=== PATIENT | male | born 1945 | race Caucasian/White ===

== ENCOUNTER → 2019-10-13 | Outpatient (CLI) | payer MEDICARE | END | disposition home or self-care (01) | LOC: LABPAT 10:56 | PROVIDERS: ATTEND Urology | DX: Z01.818 Encounter for other preprocedural examination (principal); N20.1 Calculus of ureter; I10 Essential (primary) hypertension | CPT/HCPCS: 93005 ==

== ENCOUNTER 2019-10-20 15:30 | Day surgery (SDC) | payer MEDICARE ==
--- NOTE | 2019-10-16 21:49 | P.GSHP ---
History of Present Illness H&P Date: 10/16/19 Chief Complaint: Left flank pain The patient is a 74-year-old white male with a history of kidney stones in the remote past. On 10/02/2019 he experienced acute onset of left flank pain, and a computed tomography scan obtained several days later showed evidence of mild left hydronephrosis due to two 6 mm left ureteral calculi, one within the upper ureter and the other within the mid ureter. - Constitutional Constitutional: Denies chills, Denies fever - Gastrointestinal Gastrointestinal: Denies nausea, Denies vomiting - Genitourinary (Female) Genitourinary: Reports flank pain, Denies hematuria Surgical - Exam - General well developed, well nourished, no distress - Neck no masses, trachea midline - Respiratory normal respiratory effort, clear to auscultation - Cardiovascular Rhythm: regular Abnormal Heart Sounds: no systolic murmur, no diastolic murmur, no rub, no S3 Gallop, no S4 Gallop, no click, no other - Abdomen Abdomen: soft, non tender, no guarding, no rigid, no rebound - Genitourinary normal penis with no external lesions, testicles non-tender - Rectum Rectum: normal sphincter tone, no masses - Psychiatric oriented to time, oriented to person, oriented to place, speech is normal, memory intact Results - Imaging CT scan - abdomen: report reviewed, image reviewed Assessment and Plan (1) Calculus of ureter Status: Acute Code(s): N20.1 - CALCULUS OF URETER SNOMED Code(s): 55653988 (2) Hydronephrosis with renal and ureteral calculous obstruction Status: Acute Code(s): N13.2 - HYDRONEPHROSIS WITH RENAL AND URETERAL CALCULOUS OBSTRUCTION SNOMED Code(s): 473176178 Plan: Cystoscopy, left ureteroscopy with Holmium laser lithotripsy, left ureteral stent insertion. The procedure has been reviewed in detail with the patient. Potential risks have been discussed, which include anesthesia, bleeding, infection, ureteral injury, and inability to successfully remove the calculi. The patient is where the possible need for secondary treatments.
[2019-10-18 14:20] VITALS: BMI 26.6
--- NOTE | 2019-10-20 14:19 | XR ---
EXAMINATION TYPE: XR KUB DATE OF EXAM: 10/20/2019 COMPARISON: NONE HISTORY: Pain TECHNIQUE: One view abdominal series FINDINGS: The osseous structures are intact. The bowel gas pattern is nonspecific. There is a 3.5 mm calcifica tion left upper quadrant adjacent to the transverse process of L3. Overlying bowel content limits bart luation the renal outlines with no definite suspicious calcification bilaterally. Calcifications in the pelvis are likely related to the prostate. Arthropathy of the hips and degenera tive change of the spine.. IMPRESSION: 1. Findings suggest a small mid left ureteral calculus measuring approximately 3.5 mm.
[2019-10-20 14:40] VITALS: RESP 16; TEMP 97.1
[~2019-10-20 15:30] MED LIST: DEXAMETHASONE SOD PHOSPHATE 10 MG/ML 1 ML VIAL IV ONE; LACTATED RINGERS 1,000 ML IV SCH; LIDOCAINE 1% (10MG/ML) FOR IV START SQ ONE; ONDANSETRON 4 MG/2 ML VIAL ONE; fentaNYL (PF) 50 MCG/ML 2 ML AMP IV PRN
[2019-10-20] MEDS ORDERED: PROPOFOL 10 MG/ML 20 ML VIAL IV ONE (15:55)
[2019-10-20] MEDS ORDERED: fentaNYL (PF) 50 MCG/ML 2 ML AMP ONE (15:55)
[2019-10-20] MEDS ORDERED: LIDOCAINE 1% INJ 10MG/ML (20 ML MDV) ONE (15:55)
[2019-10-20] MEDS ORDERED: MIDAZOLAM 2 MG/2 ML VIAL ONE (15:55)
[2019-10-20] MEDS ORDERED: SUCCINYLCHOLINE CHLORIDE 100 MG/5 ML SYR IV ONE (15:55)
[2019-10-20] MEDS ORDERED: IOPAMIDOL-370 50ML BTL MISCELLANE ONE (16:30)
[2019-10-20] MEDS ORDERED: LACTATED RINGERS 1,000 ML IV ONE (17:05)
--- NOTE | 2019-10-20 17:10 | P.OP ---
Date of Procedure: 10/20/19 Preoperative Diagnosis: Left ureteral calculi Postoperative Diagnosis: Same Procedure(s) Performed: Cystoscopy, left ureteroscopy with Holmium laser lithotripsy and stone basketing, left ureteral stent insertion Anesthesia: BRIANDA Surgeon: John Trejo Estimated Blood Loss (ml): 5 IV fluids (ml): 950 Pathology: other (Calculus fragments, sent for chemical analysis) Condition: stable Disposition: PACU Indications for Procedure: The patient is a 74-year-old white male with a history of kidney stones in the remote past. On 10/02/2019 he experienced acute onset of left flank pain, and a computed tomography scan obtained several days later showed evidence of mild left hydronephrosis due to two 6 mm left ureteral calculi, one within the upper ureter and the other within the mid ureter. Operative Findings: Left distal ureteral calculus, left mid ureteral calculus. Both fragmented completely. Description of Procedure: The patient was taken to the operating room and placed in the dorsolithotomy position, with legs supported in Brian stirrups. The external genitalia was prepped and draped sterilely. The 30 lens was used to introduce the 21-Maldivian Jaimes cystoscopic sheath through the urethra and into the bladder under direct vision. The prostatic urethra showed evidence of mild lateral lobe enlargement. The bladder was examined in its entirety. Both ureteral orifices were normal anatomic location and configuration, and clear urine effluxed from both. No tumors or foreign bodies were seen. Using an 8-Maldivian cone-tipped catheter, a left retrograde pyelogram was performed in the standard fashion. A calculus was seen within the left distal ureter. On the preoperative KUB x-ray, the other calculus was seen within the left proximal to mid ureter. It was noted that the left distal ureter was narrowed. A 0.035 inch Glidewire was passed through the cystoscope. The left ureteral orifice was cannulated, and the Glidewire was advanced. A 15-Maldivian balloon dilating catheter was then passed over the wire, and was used to dilate the distal ureter. The ACMI semirigid ureteroscope was advanced into the bladder, and the left ureteral orifice was cannulated. The 272 micron Holmium laser probe was passed through the ureteroscope, and lithotripsy was performed. After fragmenting the distal ureteral calculus, the ureteroscope was advanced under direct vision until the more proximal ureteral calculus was encountered. This calculus was fragmented, and this was continued until all calculus fragments were easily small enough to pass. The calculi were fairly easy to fragment. As the ureteroscope was withdrawn, multiple calculus fragments were seen within the left distal ureter. The 1.9-Maldivian nitinol basket was used to basket his fragments, leaving them in the bladder. A 0.035 inch Glidewire was then passed through the ureteroscope and up to the left renal pelvis. A 26 cm, 6-Maldivian double-J ureteral stent was placed over the wire. Proper stent positioning was verified fluoroscopically and endoscopically. The bladder was emptied and the cystoscope removed. Several calculus fragments were retrieved and sent for chemical analysis. These string attached to the stent was secured to the penis using a Tegaderm dressing. The patient tolerated the procedure well and was taken to the recovery room in stable condition.
[2019-10-20 18:26] VITALS: BP 156/86; PULSE 60
--- NOTE | 2019-10-21 09:37 | FL ---
EXAMINATION TYPE: FL urography retrograde DATE OF EXAM: 10/20/2019 FLUOROSCOPY Fluoroscopy time of 34 seconds was used during left ureteral stent placement. 3 image/s document/s t he procedure.
== END 2019-10-20 18:00 | disposition home or self-care (01) ==
LOC: OR 15:30
PROVIDERS: ATTEND Urology
DX: N13.2 Hydronephrosis with renal and ureteral calculous obstruction (principal); I10 Essential (primary) hypertension; E78.5 Hyperlipidemia, unspecified; Z87.442 Personal history of urinary calculi; Z79.899 Other long term (current) drug therapy; Z95.0 Presence of cardiac pacemaker; Z90.49 Acquired absence of other specified parts of digestive tract; Z98.890 Other specified postprocedural states
CPT/HCPCS: 82365; 74420; 74018; 52356; C2625; C1758; C1769; J2250; J1100; J0690; J2405; J2001; J3010; J0330; J2704; Q9967

== ENCOUNTER → 2019-11-23 | Outpatient (CLI) | payer MEDICARE ==
--- NOTE | 2019-11-23 20:33 | US ---
EXAMINATION TYPE: US kidneys/renal and bladder DATE OF EXAM: 11/23/2019 COMPARISON: NONE CLINICAL HISTORY: N20.1 Calculus of ureter. EXAM MEASUREMENTS: Right Kidney: 9.7x 5.9 x 5.3 cm Left Kidney: 10.3 x 4.5 x 5.2 cm Right Kidney: multiple cysts, largest 2 measuring 1.) 6.8 x3.5 x 4.2cm, 2.) 6.0 x 6.5 x 5.7cm, mild h ydro Left Kidney: anechoic tubular structure seen midline/inf ?mild hydro. Probable inferior cyst with wal l calcification measuring 0.9 x 0.8 x0.9cm Bladder: wall appears slightly thickened at 0.5cm IMPRESSION: 1. Multiple bilateral renal cysts. 2. Moderate right hydronephrosis is suspected. Mild left inferior pole hydronephrosis may be present.
--- NOTE | 2019-11-23 23:05 | XR ---
EXAMINATION TYPE: XR KUB DATE OF EXAM: 11/23/2019 COMPARISON: 10/20/2019 INDICATION: Calculus of ureter TECHNIQUE: Single view abdomen frontal projection FINDINGS: Normal colonic bowel gas is present. Psoas margins are normal. No organomegaly is present. Previous left ureteral stone is not evident. IMPRESSION: 1. Unremarkable Abdomen
== END | disposition home or self-care (01) ==
LOC: RADUSWWP 14:55
PROVIDERS: ATTEND Urology
DX: N28.1 Cyst of kidney, acquired (principal); N13.2 Hydronephrosis with renal and ureteral calculous obstruction
CPT/HCPCS: 74018; 76770

== ENCOUNTER 2020-09-07 06:20 | Inpatient (IN) | payer MEDICARE ==
[2020-09-07] MEDS ORDERED: NALOXONE 0.4 MG/ML 1 ML VIAL IV PRN (06:23)
[2020-09-07] MEDS ORDERED: ONDANSETRON 4 MG/2 ML VIAL IVP PRN (06:23)
--- NOTE | 2020-09-07 06:26 | ED ---
Recheck HPI - General Stated Complaint: ABD Pain Time Seen by Provider: 09/07/20 06:23 Source: RN notes reviewed, old records reviewed Mode of arrival: EMS Limitations: no limitations - History of Present Illness Initial Comments: This is a 75-year-old male DF for evaluation presents as a transfer patient from [facility] for small bowel obstruction history of small bowel obstruction. Patient himself is well appearing currently, pain is controlled no active nausea vomiting. Patient does have NG tube placed MD Complaint: other (Small bowel obstruction) -: days(s) Returns Today for: persistent/worsening pain related to initial visit, other (Seen and evaluated found to have small bowel obstruction) Symptoms Since Prior Visit: no new symptoms Context: other (None) Associated Symptoms: none Treatments Prior to Arrival: Given Pain Meds on, other (NG tube in place) - Related Data Home Medications Medication Instructions Recorded Confirmed Ciprofloxacin HCl [Cipro] 250 mg PO Q12HR 10/18/19 10/20/19 HYDROcodone/APAP 5-325MG [[place] 1 tab PO Q6HR PRN 10/18/19 10/20/19 5-325] Irbesartan [Avapro] 150 mg PO QAM 10/18/19 10/20/19 Isosorbide Mononitrate ER [Imdur] 30 mg PO QAM 10/18/19 10/20/19 Ketorolac [Toradol] 10 mg PO Q6HR PRN 10/18/19 10/20/19 Ondansetron [Zofran] 4 mg PO Q12HR PRN 10/18/19 10/20/19 Pravastatin Sodium [Pravachol] 40 mg PO HS 10/18/19 10/20/19 Tamsulosin HCl [Flomax] 0.4 mg PO DAILY 10/18/19 10/20/19 amLODIPine [Norvasc] 10 mg PO QAM 10/18/19 10/20/19 atenoloL [Tenormin] 25 mg PO BID 10/18/19 10/20/19 Allergies Allergy/AdvReac Type Severity Reaction Status Date / Time No Known Allergies Allergy Verified 10/20/19 14:40 Review of Systems ROS Statement: Those systems with pertinent positive or pertinent negative responses have been documented in the HPI. ROS Other: All systems not noted in ROS Statement are negative. General Exam General appearance: alert, in no apparent distress Head exam: Present: atraumatic, normocephalic, normal inspection Eye exam: Present: normal appearance, PERRL, EOMI. Absent: scleral icterus, conjunctival injection, periorbital swelling ENT exam: Present: normal exam, mucous membranes moist Neck exam: Present: normal inspection. Absent: tenderness, meningismus, lymphadenopathy Respiratory exam: Present: normal lung sounds bilaterally. Absent: respiratory distress, wheezes, rales, rhonchi, stridor Cardiovascular Exam: Present: regular rate, normal rhythm, normal heart sounds. Absent: systolic murmur, diastolic murmur, rubs, gallop, clicks GI/Abdominal exam: Present: soft, normal bowel sounds. Absent: distended, tenderness, guarding, rebound, rigid Extremities exam: Present: normal inspection, full ROM, normal capillary refill. Absent: tenderness, pedal edema, joint swelling, calf tenderness Back exam: Present: normal inspection Neurological exam: Present: alert, oriented X3, CN II-XII intact Psychiatric exam: Present: normal affect, normal mood Skin exam: Present: warm, dry, intact, normal color. Absent: rash Course - Reevaluation(s) Reevaluation #1: 09/07/20 06:25 Medical record is reviewed Reevaluation #2: 09/07/20 06:26 Transferring paperwork has been reviewed Medical Decision Making - Medical Decision Making 75 male to be admitted for small bowel obstruction. Patient was surgical consultation and into his place, patient be kept nothing by mouth with symptomatically treatment Disposition Clinical Impression: Small bowel obstruction Disposition: ADMITTED IP TO THIS [facility] Condition: Fair Is patient prescribed a controlled substance at d/c from ED?: No Referrals: Sourav Amezquita MD [Primary Care Provider] - 1-2 days
[2020-09-07] MEDS ORDERED: SODIUM CHLORIDE 0.9% 1,000 ML IV SCH (06:30)
[2020-09-07] MEDS: MORPHINE SULFATE 4 MG/ML SYRINGE IV PRN ×2 (06:48→10:49)
[2020-09-07] MEDS ORDERED: PANTOPRAZOLE 40 MG/10 ML VIAL IV SCH (09:00)
--- NOTE | 2020-09-07 09:51 | P.GSCN ---
History of Present Illness Consult date: 09/07/20 Reason for Consult: Small bowel obstruction History of present illness: 75-year-old male from outside hospital presents as a transfer with small bowel obstruction. Patient states he had 2 similar episodes in the past. The first episode was treated via laparoscopic surgery. His appendix was removed at that time. His surgeon told him at the time that he did not think there was actually a bowel obstruction. The second episode was treated nonoperatively. He states he had episodes of nausea and vomiting and diarrhea 3-4 days ago but those symptoms resolved and then yesterday began experiencing bloating and some vague abdominal pain. Went to the ER for evaluation with those complaints and had a CAT scan. CAT scan does demonstrate proximal small bowel dilation. There is air filled colon as well. There is collapsed distal ileal loops. There is a 2 cm mesenteric lymph node seen without calcification. This lymph node is in the vicinity of the decreased caliber bowel loops. He has no pain at this time. Still feels bloated. Nasogastric tube was placed. White blood cell count is normal. He is afebrile. Denies fevers. No rectal bleeding or melena. No sick contacts. Only other surgical history and the abdomen would be bilateral inguinal hernias many years ago. Review of Systems The patient denies any acute changes in vision or hearing, no dysphagia or odynophagia, no chest pain or shortness of breath, no dysuria or hematuria, no headache, no runny nose, no rectal bleeding or melena, no unexplained weight loss Medications and Allergies Home Medications Medication Instructions Recorded Confirmed Type Irbesartan [Avapro] 150 mg PO QAM 10/18/19 09/07/20 History Pravastatin Sodium [Pravachol] 40 mg PO HS 10/18/19 09/07/20 History amLODIPine [Norvasc] 10 mg PO QAM 10/18/19 09/07/20 History atenoloL [Tenormin] 25 mg PO BID 10/18/19 09/07/20 History Azelastine HCl [Astepro] 2 spray EA NOSTRIL BID 09/07/20 09/07/20 History Ezetimibe [Zetia] 10 mg PO DAILY 09/07/20 09/07/20 History Isosorbide Mononitrate ER [Imdur] 60 mg PO DAILY 09/07/20 09/07/20 History Ketorolac 0.5% Ophth Soln [Acular] 1 drop LEFT EYE QID 09/07/20 09/07/20 History Tolterodine ER [Detrol LA] 4 mg PO DAILY 09/07/20 09/07/20 History Allergies Allergy/AdvReac Type Severity Reaction Status Date / Time No Known Allergies Allergy Verified 09/07/20 07:17 Surgical - Exam Vital Signs Temp Pulse Resp BP Pulse Ox 97.6 F 60 22 118/82 96 09/07/20 06:39 09/07/20 06:39 09/07/20 06:39 09/07/20 06:39 09/07/20 06:39 Physical exam: General: Well-developed, well-nourished HEENT: Normocephalic, sclerae nonicteric Abdomen: Nontender, mild distention Extremities: No edema Neuro: Alert and oriented Assessment and Plan (1) Small bowel obstruction Narrative/Plan: 75-year-old male with recurrent small bowel obstruction. CAT scan reviewed. Findings of mesenteric lymph node is somewhat unusual. No discrete transition point. No inflammatory changes in the abdomen. Continue nonoperative approach for now. Repeat abdominal x-rays tomorrow. Will follow closely. Current Visit: Yes Status: Acute Code(s): K56.609 - UNSP INTESTNL OBST, UNSP TO PARTIAL VERSUS COMPLETE OBST SNOMED Code(s): 805244095
[2020-09-07] MEDS: ENOXAPARIN 40 MG/0.4 ML SYRINGE SQ SCH (10:38)
[2020-09-07] MEDS: ISOSORBIDE MONONITRATE ER 60 MG TAB.ER.24H PO SCH (10:38)
[2020-09-07] MEDS: atenoloL 25 MG TAB PO SCH ×2 (10:39→20:06)
[2020-09-07] MEDS: amLODIPine 10 MG TAB PO SCH (10:39)
[2020-09-07] MEDS: LOSARTAN 50 MG TAB PO SCH (10:39)
[2020-09-07] MEDS: OXYBUTYNIN XL 5 MG TAB.ER.24 PO SCH (10:39)
[2020-09-07 12:56] LABS: African American GFR (CKD) >90 (>60 ml/min/1.73 sqM); Anion Gap 8 mmol/L; Blood Urea Nitrogen 27 mg/dL (9-20); Calcium 8.2 mg/dL (8.4-10.2); Carbon Dioxide 21 mmol/L (22-30); Chloride 109 mmol/L (98-107); Glucose 121 mg/dL (74-99); Non-African American GFR(CKD) 84 (>60 ml/min/1.73 sqM); Potassium 3.8 mmol/L (3.5-5.1); Sodium 138 mmol/L (137-145)
[2020-09-07] MEDS: KETOROLAC 0.5% OPHTH DROPS 5 ML BTL LEFT EYE SCH ×4 (14:30→20:10)
[2020-09-07] MEDS: LACTATED RINGERS 1,000 ML IV SCH ×2 (15:21→20:06)
--- NOTE | 2020-09-07 19:48 | P.HPIM ---
History of Present Illness H&P Date: 09/07/20 Chief Complaint: Abdominal pain History of presenting complaint: This is a pleasant 75-year-old patient of Dr. Amezquita. Chronic stable medical conditions include GERD, hypertension, hyperlipidemia, permanent pacemaker for sick sinus syndrome, hiatal hernia, nonobstructive coronary artery disease, osteomyelitis, BPH, basal cell carcinoma, kidney stones recovering. Patient 3 days ago started off with increasing abdominal pain. More central. Followed by nausea vomiting. No fever no chills. Normally has a bowel movement every day. Patient finally presented to [facility]. Computed tomography scan showed that what appeared to be small bowel obstruction with a transition point. Patient was sent down here for further surgical evaluation. NG tube was placed. Which is putting out a good amount. Some improvement and belly pain. Surgery was consulted Review of systems: GEN.: Tired EYES: None HEENT: None NECK: None RESPIRATORY: None CARDIOVASCULAR: None GASTROINTESTINAL: As above GENITOURINARY: None MUSCULOSKELETAL: None LYMPHATICS: None HEMATOLOGICAL: None PSYCHIATRY: None NEUROLOGICAL: None Past medical history to include: GERD, hypertension, hyperlipidemia, permanent pacemaker for sick sinus syndrome, hiatal hernia, nonobstructive coronary artery disease, osteoarthritis, BPH, kidney stones, basal cell carcinoma 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 Alcohol rarely Physical examination: VITAL SIGNS: 97.6, 60, 22, 118/82, 96% room air GENERAL: BMI 26.6, reclined in bed, awake. EYES: Pupils equal. Conjunctiva normal. HEENT: External appearance of nose and ears normal, oral cavity-dry mucous membrane, NG tube to suction. NECK: JVD not raised; masses not palpable. HEART: First and second heart sounds are normal; no edema. LUNGS: Respiratory rate normal; clear to auscultation. ABDOMEN: Soft, minimal tenderness, some abdominal distention liver spleen not palpable, no masses palpable. PSYCH: Alert and oriented x3; mood and affect normal. MUSCULAR skeletal: Evidence of some OA in the hands NEUROLOGICAL: Cranial nerves grossly intact; no facial asymmetry, power and sensation grossly intact. LYMPHATICS: No lymph nodes palpable in the axilla and neck INVESTIGATIONS, reviewed in the clinical context: Sodium 138 potassium 3.8 bicarb 21 BUN 27 creatinine 0.9 Labs from [facility]: Amylase 67 lipase 50 white count 6.28 hemoglobin 16.1 platelets 144 potassium 3.9 lactic acid 1.2 troponin less than 0.01 AST, ALT both normal Computed tomography scan of the abdomen showing small bowel obstruction with a transition point Assessment and plan: -Acute small bowel obstruction, likely from fibrotic bands from prior abdominal surgery. Patient has a transition point. NG tube to suction. General surgery consultation -Clinical dehydration with elevated BUN IV fluids -GERD H2 geno -Hyperlipidemia Continues Zetia -Essential hypertension Continue Norvasc and Tenormin -Chronic stable angina Continue with Imdur, atenolol -Permanent pacemaker for sick sinus syndrome -Nephrolithiasis currently is a dramatic -BPH Continue Detrol LA -Hiatal hernia Pepcid Surgery consulted. NG tube to suction. Lovenox for DVT prophylaxis. Lactated Ringer's. Care was discussed with the patient questions answered Given the complexity and severity of patient's condition expect the patient to be in the hospital at least for 2 overnights Past Medical History - Past Family History Mother Additional Family Medical History / Comment(s): Pre-cancerous lesion in stomach Father Family Medical History: Vascular Disorder Additional Family Medical History / Comment(s): Father of a abdominal aneurysm. Medications and Allergies Home Medications Medication Instructions Recorded Confirmed Type Irbesartan [Avapro] 150 mg PO QAM 10/18/19 09/07/20 History Pravastatin Sodium [Pravachol] 40 mg PO HS 10/18/19 09/07/20 History amLODIPine [Norvasc] 10 mg PO QAM 10/18/19 09/07/20 History atenoloL [Tenormin] 25 mg PO BID 10/18/19 09/07/20 History Azelastine HCl [Astepro] 2 spray EA NOSTRIL BID 09/07/20 09/07/20 History Ezetimibe [Zetia] 10 mg PO DAILY 09/07/20 09/07/20 History Isosorbide Mononitrate ER [Imdur] 60 mg PO DAILY 09/07/20 09/07/20 History Ketorolac 0.5% Ophth Soln [Acular] 1 drop LEFT EYE QID 09/07/20 09/07/20 History Tolterodine ER [Detrol LA] 4 mg PO DAILY 09/07/20 09/07/20 History Allergies Allergy/AdvReac Type Severity Reaction Status Date / Time No Known Allergies Allergy Verified 09/07/20 07:17 Physical Exam Vitals: Vital Signs Temp Pulse Resp BP Pulse Ox 09/07/20 06:39 97.6 F 60 22 118/82 96 Intake and Output 09/06/20 09/07/20 09/07/20 22:59 06:59 14:59 Other: Weight 81.647 kg Results CBC & Chem 7: 09/07/20 12:35
[2020-09-07] MEDS: FAMOTIDINE 20 MG/2 ML VIAL IV SCH (20:06)
[2020-09-07] MEDS: PRAVASTATIN SODIUM 40 MG TAB PO SCH (20:06)
[2020-09-08] MEDS: LACTATED RINGERS 1,000 ML IV SCH ×2 (03:41→20:08)
--- NOTE | 2020-09-08 07:29 | XR ---
EXAMINATION TYPE: XR abdomen 2V DATE OF EXAM: 09/08/2020 CLINICAL DATA: 75-year-old male follow-up bowel obstruction, [facility] COMPARISON: 09/07/2020 FINDINGS: NG tube tip at or just below the GE junction level. Consider advancing the tube slightly. R ight atrial and ventricular pacer leads. Domes of the diaphragm are elevated suggesting hypoventilato ry changes. Scattered colonic air is present. Loop of dilated small bowel is noted in the right robert edian upper abdomen measuring up to 3.9 cm. Some central small bowel air-fluid levels are also demons trated. On the supine image, the loops measure up to 5.6 cm versus 5.5 cm previously. IMPRESSION: Ongoing dilated small bowel loops with air-fluid levels. Small bowel loops measure up to 5.6 cm versu s 5.5 cm, previously. Findings suggest ongoing small bowel obstruction.
[2020-09-08] MEDS: KETOROLAC 0.5% OPHTH DROPS 5 ML BTL LEFT EYE SCH ×4 (08:40→21:45)
[2020-09-08] MEDS: OXYBUTYNIN XL 5 MG TAB.ER.24 PO SCH (08:40)
[2020-09-08] MEDS: EZETIMIBE 10 MG TAB PO SCH (08:40)
[2020-09-08] MEDS: atenoloL 25 MG TAB PO SCH ×2 (08:40→20:10)
[2020-09-08] MEDS: LOSARTAN 50 MG TAB PO SCH (08:40)
[2020-09-08] MEDS: amLODIPine 10 MG TAB PO SCH (08:40)
[2020-09-08] MEDS: ISOSORBIDE MONONITRATE ER 60 MG TAB.ER.24H PO SCH (08:40)
[2020-09-08] MEDS: FAMOTIDINE 20 MG/2 ML VIAL IV SCH (08:40)
[2020-09-08] MEDS: ENOXAPARIN 40 MG/0.4 ML SYRINGE SQ SCH (08:40)
[2020-09-08 08:52] LABS: Basophils # (A) 0.01 X 10*3/uL (0.00-0.10); Basophils % (A) 0.3 %; Eosinophils # (A) 0.06 X 10*3/uL (0.04-0.35); Eosinophils % (A) 1.6 %; HCT 42.5 % (39.6-50.0); HGB 14.3 g/dL (13.0-17.0); Lymphocytes # (A) 0.56 X 10*3/uL (0.90-5.00); MCHC 33.6 g/dL (32.0-37.0); MCV 92.2 fL (80.0-97.0); Mean Platelet Volume 10.8 fL (9.5-12.2); Monocytes % (A) 10.7 %; Neutrophils % (A) 72.1 %; Platelet Count 116 X 10*3/uL (140-440); RBC 4.61 X 10*6/uL (4.40-5.60); RDW 12.5 % (11.5-14.5); WBC 3.74 X 10*3/uL (4.50-10.00)
[2020-09-08 09:21] LABS: African American GFR (CKD) 97.2 (60.0-200.0); Anion Gap 7.4 mmol/L (4.00-12.00); BUN/Creat Ratio 23.33 Ratio (12.00-20.00); Calcium 8.8 mg/dL (8.7-10.3); Carbon Dioxide 22.6 mmol/L (21.6-31.8); Non-African American GFR(CKD) 83.8 (60.0-200.0); Phosphorus 2.4 mg/dL (2.4-5.1); Potassium 3.9 mmol/L (3.5-5.5)
--- NOTE | 2020-09-08 09:55 | P.PN ---
Subjective Progress Note Date: 09/08/20 Principal diagnosis: Small bowel obstruction Patient says he is doing better. Feels much less bloated today. He has passed flatus. X-rays show persistent small bowel dilation however. Objective - Vital Signs Vital signs: Vital Signs Temp 98.2 F 09/08/20 08:00 Pulse 61 09/08/20 08:00 Resp 18 09/08/20 08:00 BP 128/79 09/08/20 08:00 Pulse Ox 93 L 09/08/20 08:00 Intake & Output 09/07/20 09/08/20 09/08/20 18:59 06:59 18:59 Intake Total 250 Output Total 105 650 Balance 145 -650 Weight 81.647 kg Intake: Intake, IV Titration 250 Amount Lactated Ringers 1,000 ml 250 @ 125 mls/hr IV .Q8H [facility] Rx#:[id number] Output: Gastric Drainage 105 200 Urine 450 Other: Voiding Method Urinal Urinal # Voids 1 2 - Exam Abdomen: Soft, much less distended, nontender - Labs CBC & Chem 7: 09/08/20 05:20 09/08/20 05:20 Labs: Abnormal Lab Results - Last 24 Hours (Table) 09/07/20 09/08/20 09/08/20 Range/Units 12:35 05:20 05:20 WBC 3.74 L (4.50-10.00) X 10*3/uL Plt Count 116 L (140-440) X 10*3/uL Lymphocytes # 0.56 L (0.90-5.00) X 10*3/uL Chloride 109 H (98-107) mmol/L Carbon Dioxide 21 L (22-30) mmol/L BUN 27 H (9-20) mg/dL BUN/Creatinine Ratio 23.33 H (12.00-20.00) Ratio Glucose 121 H (74-99) mg/dL Calcium 8.2 L (8.4-10.2) mg/dL Assessment and Plan (1) Small bowel obstruction Current Visit: Yes Status: Acute Code(s): K56.609 - UNSP INTESTNL OBST, UNSP TO PARTIAL VERSUS COMPLETE OBST SNOMED Code(s): 794693108 Plan: Patient doing better today. He is much less distended. X-rays still show bowel dilation. Will repeat films tomorrow. Keep G-tube for now. Repeat labs tomorrow.
[2020-09-08] MEDS: BENZOCAINE/MENTHOL LOZENG 1 EACH LOZENGE MUCOUS MEM PRN (13:01)
--- NOTE | 2020-09-08 15:07 | P.PN ---
Progress Note - Text Progress Note Date: 09/08/20 Chief Complaint: Abdominal pain History of presenting complaint: This is a pleasant 75-year-old patient of Dr. Amezquita. Chronic stable medical conditions include GERD, hypertension, hyperlipidemia, permanent pacemaker for sick sinus syndrome, hiatal hernia, nonobstructive coronary artery disease, osteomyelitis, BPH, basal cell carcinoma, kidney stones recovering. Patient 3 days ago started off with increasing abdominal pain. More central. Followed by nausea vomiting. No fever no chills. Normally has a bowel movement every day. Patient finally presented to [facility]. Computed tomography scan showed small bowel obstruction with a transition point. Patient was sent down here for further surgical evaluation. NG tube was placed. Today: NG tube in place. Some abdominal pain. Did pass some flatus. Family is visiting. Review of systems: Was done for constitutional, cardiovascular, GI, pulmonary. relevant finding as above Active Medications Amlodipine Besylate (Amlodipine 10 Mg Tab) 10 mg PO QAM [facility] Last Admin: 09/08/20 08:40 Dose: 10 mg Documented by: Atenolol (Atenolol 25 Mg Tab) 25 mg PO BID [facility] Last Admin: 09/08/20 08:40 Dose: 25 mg Documented by: Benzocaine/Menthol (Benzocaine/Menthol Lozeng 1 Each Lozenge) 1 each MUCOUS MEM Q4HR PRN PRN Reason: Throat irratation Last Admin: 09/08/20 13:01 Dose: 1 each Documented by: Ezetimibe (Ezetimibe 10 Mg Tab) 10 mg PO DAILY [facility] Last Admin: 09/08/20 08:40 Dose: 10 mg Documented by: Enoxaparin Sodium (Enoxaparin 40 Mg/0.4 Ml Syringe) 40 mg SQ DAILY [facility] Last Admin: 09/08/20 08:40 Dose: 40 mg Documented by: Famotidine (Famotidine 20 Mg/2 Ml Vial) 20 mg IV Q12HR [facility] Stop: 09/08/20 18:00 Last Admin: 09/08/20 08:40 Dose: 20 mg Documented by: Famotidine (Famotidine 20 Mg Tab) 20 mg PO Q12HR [facility] Lactated Ringer's (Lactated Ringers) 1,000 mls @ 125 mls/hr IV .Q8H [facility] Last Admin: 09/08/20 03:41 Dose: Not Given Documented by: Isosorbide Mononitrate (Isosorbide Mononitrate Er 60 Mg Tab.Er.24h) 60 mg PO DAILY [facility] Last Admin: 09/08/20 08:40 Dose: 60 mg Documented by: Ketorolac Tromethamine (Ketorolac 0.5% Ophth Drops 5 Ml Btl) 1 drops LEFT EYE QID [facility] Last Admin: 09/08/20 08:40 Dose: 1 drops Documented by: Losartan Potassium (Losartan 50 Mg Tab) 50 mg PO QAM [facility] Last Admin: 09/08/20 08:40 Dose: 50 mg Documented by: Morphine Sulfate (Morphine Sulfate 4 Mg/Ml Syringe) 4 mg IV Q4HR PRN PRN Reason: Severe Pain Last Admin: 09/07/20 10:49 Dose: 4 mg Documented by: Naloxone HCl (Naloxone 0.4 Mg/Ml 1 Ml Vial) 0.2 mg IV Q2M PRN PRN Reason: Opioid Reversal Ondansetron HCl (Ondansetron 4 Mg/2 Ml Vial) 4 mg IVP Q8HR PRN PRN Reason: Nausea And Vomiting Last Admin: 09/07/20 15:18 Dose: 4 mg Documented by: Oxybutynin Chloride (Oxybutynin Xl 5 Mg Tab.Er.24) 10 mg PO DAILY [facility] Last Admin: 09/08/20 08:40 Dose: 10 mg Documented by: Pravastatin Sodium (Pravastatin Sodium 40 Mg Tab) 40 mg PO HS [facility] Last Admin: 09/07/20 20:06 Dose: 40 mg Documented by: Past medical history to include: GERD, hypertension, hyperlipidemia, permanent pacemaker for sick sinus syndrome, hiatal hernia, nonobstructive coronary artery disease, osteoarthritis, BPH, kidney stones, basal cell carcinoma 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 Alcohol rarely Physical examination: VITAL SIGNS: 98.2, 61, 18, 128/79, 93% room air GENERAL: Declining in bed, awake EYES: Pupils equal. Conjunctiva normal. HEENT: External appearance of nose and ears normal, oral cavity-dry mucous membrane, NG tube to suction. NECK: JVD not raised; masses not palpable. HEART: First and second heart sounds are normal; no edema. LUNGS: Respiratory rate normal; clear to auscultation. ABDOMEN: Soft, minimal tenderness, bowel sounds sluggish, liver spleen not palpable, no masses palpable. PSYCH: Alert and oriented x3; mood and affect normal. MUSCULAR skeletal: Evidence of some OA in the hands INVESTIGATIONS, reviewed in the clinical context: September 08: Abdominal x-ray film personally reviewed by me shows: Persistent small bowel obstruction with air-fluid levels September 08: WBC 3.7 hemoglobin 14.3 potassium 3.9 creatinine 0.9 Sodium 138 potassium 3.8 bicarb 21 BUN 27 creatinine 0.9 Labs from [facility]: Amylase 67 lipase 50 white count 6.28 hemoglobin 16.1 platelets 144 potassium 3.9 lactic acid 1.2 troponin less than 0.01 AST, ALT both normal Computed tomography scan of the abdomen showing small bowel obstruction with a transition point Assessment and plan: -Acute small bowel obstruction, likely from fibrotic bands from prior abdominal surgery. Continue NG tube to suction. Follow with Dr. Mohamud -Clinical dehydration with elevated BUN IV fluids -GERD H2 geno -Hyperlipidemia Continues Zetia -Essential hypertension Continue Norvasc and Tenormin -Chronic stable angina Continue with Imdur, atenolol -Permanent pacemaker for sick sinus syndrome -Nephrolithiasis currently is a dramatic -BPH Continue Detrol LA -Hiatal hernia Pepcid Discussed with the patient and family the bedside. Continue current treatment plan. IV fluids.
[2020-09-08] MEDS: PRAVASTATIN SODIUM 40 MG TAB PO SCH (20:10)
[2020-09-08] MEDS: FAMOTIDINE 20 MG TAB PO SCH (20:10)
[2020-09-09] MEDS: LACTATED RINGERS 1,000 ML IV SCH ×4 (00:12→20:03)
[2020-09-09] MEDS: OXYBUTYNIN XL 5 MG TAB.ER.24 PO SCH (08:22)
[2020-09-09] MEDS: EZETIMIBE 10 MG TAB PO SCH (08:22)
[2020-09-09] MEDS: FAMOTIDINE 20 MG TAB PO SCH ×2 (08:22→20:01)
[2020-09-09] MEDS: ISOSORBIDE MONONITRATE ER 60 MG TAB.ER.24H PO SCH (08:22)
[2020-09-09] MEDS: amLODIPine 10 MG TAB PO SCH (08:22)
[2020-09-09] MEDS: atenoloL 25 MG TAB PO SCH ×2 (08:22→20:01)
[2020-09-09] MEDS: LOSARTAN 50 MG TAB PO SCH (08:22)
[2020-09-09] MEDS: ENOXAPARIN 40 MG/0.4 ML SYRINGE SQ SCH (08:23)
[2020-09-09] MEDS: KETOROLAC 0.5% OPHTH DROPS 5 ML BTL LEFT EYE SCH ×4 (08:23→21:24)
[2020-09-09] MEDS: BENZOCAINE/MENTHOL LOZENG 1 EACH LOZENGE MUCOUS MEM PRN ×2 (08:26→21:44)
--- NOTE | 2020-09-09 10:05 | P.PN ---
Subjective Progress Note Date: 09/09/20 Principal diagnosis: Small bowel obstruction Patient says he is doing about the same. He did pass flatus but no bowel movement. Denies pain. Today's x-rays are pending. He is afebrile. Objective - Vital Signs Vital signs: Vital Signs Temp 98.1 F 09/09/20 07:25 Pulse 60 09/09/20 08:00 Resp 15 09/09/20 08:00 BP 135/78 09/09/20 07:25 Pulse Ox 95 09/09/20 07:25 Intake & Output 09/08/20 09/09/20 09/09/20 18:59 06:59 18:59 Intake Total 1000 20 Output Total 1100 225 Balance 1000 -1080 -225 Intake: Intake, IV Titration 1000 Amount Lactated Ringers 1,000 ml 1000 @ 125 mls/hr IV .Q8H [facility] Rx#:[id number] Oral 0 20 Output: Drainage 150 Right Face 150 Urine 950 225 Other: Voiding Method Urinal Urinal Urinal # Voids 3 3 - Exam Abdomen: Soft, nontender, nondistended - Labs CBC & Chem 7: 09/08/20 05:20 09/08/20 05:20 Assessment and Plan (1) Small bowel obstruction Narrative/Plan: Patient seems to be gradually improving. Await repeat x-rays today. If small bowel obstruction still suspected Will order small bowel series for tomorrow. Current Visit: Yes Status: Acute Code(s): K56.609 - UNSP INTESTNL OBST, UNSP TO PARTIAL VERSUS COMPLETE OBST SNOMED Code(s): 563002937
--- NOTE | 2020-09-09 10:25 | XR ---
EXAMINATION TYPE: XR abdomen 2V DATE OF EXAM: 09/09/2020 CLINICAL DATA: 75-year-old male follow-up small bowel obstruction, [facility] COMPARISON: 09/08/2020 FINDINGS: ET tube tip at the level of the GE junction. Consider further advancement into the stomach. Right atrial and right ventricular leads are present. Scattered colonic air-fluid levels redemonstra juancarlos. Some increasing rectal air now noted. Small bowel loops now measure up to 4.4 cm versus 5.6 cm, previously. No evidence for free intraperitoneal air. IMPRESSION: Findings suggest slowly improving small bowel obstruction. There is some increase in colonic air and dilated small bowel loops now measure up to 4.4 cm versus 5.6 cm, previously. Consider advancing the NG tube so that the sidehole enters the stomach.
[2020-09-09 12:39] LABS: Anion Gap 9.7 mmol/L (4.00-12.00); BUN/Creat Ratio 18.75 Ratio (12.00-20.00); Calcium 8.2 mg/dL (8.7-10.3); Carbon Dioxide 21.3 mmol/L (21.6-31.8)
[2020-09-09 12:40] LABS: Basophils # (A) 0 X 10*3/uL (0.00-0.10); Basophils % (A) 0 %; Eosinophils # (A) 0.07 X 10*3/uL (0.04-0.35); Eosinophils % (A) 1.7 %; Lymphocytes # (A) 0.66 X 10*3/uL (0.90-5.00); Lymphocytes % (A) 15.6 %; MCH 30.8 pg (27.0-32.0); MCHC 34.1 g/dL (32.0-37.0); MCV 90.1 fL (80.0-97.0); Mean Platelet Volume 10.9 fL (9.5-12.2); Monocytes # (A) 0.42 X 10*3/uL (0.20-1.00); Neutrophils # (A) 3.06 X 10*3/uL (1.80-7.70); Neutrophils % (A) 72.5 %; Platelet Count 106 X 10*3/uL (140-440); RBC 4.55 X 10*6/uL (4.40-5.60); RDW 11.9 % (11.5-14.5); WBC 4.22 X 10*3/uL (4.50-10.00)
--- NOTE | 2020-09-09 17:14 | P.PN ---
Progress Note - Text Progress Note Date: 09/09/20 Chief Complaint: Abdominal pain History of presenting complaint: This is a pleasant 75-year-old patient of Dr. Amezquita. Chronic stable medical conditions include GERD, hypertension, hyperlipidemia, permanent pacemaker for sick sinus syndrome, hiatal hernia, nonobstructive coronary artery disease, osteomyelitis, BPH, basal cell carcinoma, kidney stones recovering. Patient 3 days ago started off with increasing abdominal pain. More central. Followed by nausea vomiting. No fever no chills. Normally has a bowel movement every day. Patient finally presented to [facility]. Computed tomography scan showed small bowel obstruction with a transition point. Patient was sent down here for further surgical evaluation. NG tube was placed. Today: NG tube in place. About 300 mL's last 24 hours output. Small amount of flatus. Some abdominal distention. No nausea vomiting. Review of systems: Was done for constitutional, cardiovascular, GI, pulmonary. relevant finding as above Active Medications Amlodipine Besylate (Amlodipine 10 Mg Tab) 10 mg PO QAM [facility] Last Admin: 09/09/20 08:22 Dose: 10 mg Documented by: Atenolol (Atenolol 25 Mg Tab) 25 mg PO BID [facility] Last Admin: 09/09/20 08:22 Dose: 25 mg Documented by: Benzocaine/Menthol (Benzocaine/Menthol Lozeng 1 Each Lozenge) 1 each MUCOUS MEM Q4HR PRN PRN Reason: Throat irratation Last Admin: 09/09/20 08:26 Dose: 1 each Documented by: Ezetimibe (Ezetimibe 10 Mg Tab) 10 mg PO DAILY [facility] Last Admin: 09/09/20 08:22 Dose: 10 mg Documented by: Enoxaparin Sodium (Enoxaparin 40 Mg/0.4 Ml Syringe) 40 mg SQ DAILY [facility] Last Admin: 09/09/20 08:23 Dose: 40 mg Documented by: Famotidine (Famotidine 20 Mg Tab) 20 mg PO Q12HR [facility] Last Admin: 09/09/20 08:22 Dose: 20 mg Documented by: Lactated Ringer's (Lactated Ringers) 1,000 mls @ 125 mls/hr IV .Q8H [facility] Last Admin: 09/09/20 03:44 Dose: 125 mls/hr Documented by: Isosorbide Mononitrate (Isosorbide Mononitrate Er 60 Mg Tab.Er.24h) 60 mg PO DAILY [facility] Last Admin: 09/09/20 08:22 Dose: 60 mg Documented by: Ketorolac Tromethamine (Ketorolac 0.5% Ophth Drops 5 Ml Btl) 1 drops LEFT EYE QID [facility] Last Admin: 09/09/20 08:23 Dose: 1 drops Documented by: Losartan Potassium (Losartan 50 Mg Tab) 50 mg PO QAM [facility] Last Admin: 09/09/20 08:22 Dose: 50 mg Documented by: Morphine Sulfate (Morphine Sulfate 4 Mg/Ml Syringe) 4 mg IV Q4HR PRN PRN Reason: Severe Pain Last Admin: 09/07/20 10:49 Dose: 4 mg Documented by: Naloxone HCl (Naloxone 0.4 Mg/Ml 1 Ml Vial) 0.2 mg IV Q2M PRN PRN Reason: Opioid Reversal Ondansetron HCl (Ondansetron 4 Mg/2 Ml Vial) 4 mg IVP Q8HR PRN PRN Reason: Nausea And Vomiting Last Admin: 09/07/20 15:18 Dose: 4 mg Documented by: Oxybutynin Chloride (Oxybutynin Xl 5 Mg Tab.Er.24) 10 mg PO DAILY [facility] Last Admin: 09/09/20 08:22 Dose: 10 mg Documented by: Pravastatin Sodium (Pravastatin Sodium 40 Mg Tab) 40 mg PO HS [facility] Last Admin: 09/08/20 20:10 Dose: 40 mg Documented by: Past medical history to include: GERD, hypertension, hyperlipidemia, permanent pacemaker for sick sinus syndrome, hiatal hernia, nonobstructive coronary artery disease, osteoarthritis, BPH, kidney stones, basal cell carcinoma 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 Conjunctiva normal. HEENT: External appearance of nose and ears normal, oral cavity-dry mucous membrane, NG tube to suction. NECK: JVD not raised; masses not palpable. HEART: First and second heart sounds are normal; no edema. LUNGS: Respiratory rate normal; clear to auscultation. ABDOMEN: Soft, slight distention, minimal tenderness, bowel sounds -hyperactive, liver spleen not palpable, no masses palpable. PSYCH: Alert and oriented x3; mood and affect normal. MUSCULAR skeletal: Evidence of some OA in the hands INVESTIGATIONS, reviewed in the clinical context: September 09: WBC 4.2 hemoglobin 14 platelets 106 potassium 4 creatinine 0.8 Abdominal x-ray film personally reviewed by me: Shows air-fluid levels September 08: Abdominal x-ray film personally reviewed by me shows: Persistent small bowel obstruction with air-fluid levels September 08: WBC 3.7 hemoglobin 14.3 potassium 3.9 creatinine 0.9 Sodium 138 potassium 3.8 bicarb 21 BUN 27 creatinine 0.9 Labs from [facility]: Amylase 67 lipase 50 white count 6.28 hemoglobin 16.1 platelets 144 potassium 3.9 lactic acid 1.2 troponin less than 0.01 AST, ALT both normal Computed tomography scan of the abdomen showing small bowel obstruction with a transition point Assessment and plan: -Acute small bowel obstruction, likely from fibrotic bands from prior abdominal surgery.-Slow to respond Continue NG tube to suction. Follow with Dr. Mohamud -Clinical dehydration with elevated BUN IV fluids -GERD H2 geno -Hyperlipidemia Continues Zetia -Essential hypertension Continue Norvasc and Tenormin -Chronic stable angina Continue with Imdur, atenolol -Permanent pacemaker for sick sinus syndrome -Nephrolithiasis currently is a dramatic -BPH Continue Detrol LA -Hiatal hernia Pepcid Discussed with the patient . Continue NG tube and suction. Sitting up in a chair possible. Follow labs
[2020-09-09] MEDS: PRAVASTATIN SODIUM 40 MG TAB PO SCH (20:01)
[2020-09-10] MEDS: LACTATED RINGERS 1,000 ML IV SCH ×3 (04:39→20:05)
[2020-09-10 06:33] LABS: African American GFR (CKD) >90 (>60 ml/min/1.73 sqM); Anion Gap 9 mmol/L; Blood Urea Nitrogen 14 mg/dL (9-20); Calcium 8.1 mg/dL (8.4-10.2); Carbon Dioxide 20 mmol/L (22-30); Chloride 107 mmol/L (98-107); Glucose 68 mg/dL (74-99); Non-African American GFR(CKD) 86 (>60 ml/min/1.73 sqM); Sodium 136 mmol/L (137-145)
--- NOTE | 2020-09-10 11:39 | FL ---
EXAMINATION TYPE: FL small bowel follow through DATE OF EXAM: 09/10/2020 CLINICAL HISTORY: Small bowel obstruction. TECHNIQUE: A single contrast small bowel follow through is performed utilizing EZ paque contrast th rough nasogastric tube. 14 seconds of fluoro time and 8 images obtained. COMPARISON: Outside CT 3 days ago and interval abdominal x-rays. FINDINGS: Electronics Production Supervisor image of the abdomen shows continued improved gas distended and dilated small bowel loops in the left upper to mid abdomen. The small bowel study shows normal transit to the colon in less than 115 minutes. Mild prominence of jejunal loops in the left abdomen. Mild wall thickening of ileal loops in the lower abdomen and pelvi s extending right of midline. Nondilated distal and terminal ileum with normal mucosa. IMPRESSION: Findings consistent with resolving mid small bowel obstruction. Possible developing dista l enteritis, correlate clinically.
[2020-09-10] MEDS: EZETIMIBE 10 MG TAB PO SCH (12:01)
[2020-09-10] MEDS: atenoloL 25 MG TAB PO SCH ×2 (12:01→20:05)
[2020-09-10] MEDS: LOSARTAN 50 MG TAB PO SCH (12:01)
[2020-09-10] MEDS: FAMOTIDINE 20 MG TAB PO SCH ×2 (12:01→20:05)
[2020-09-10] MEDS: amLODIPine 10 MG TAB PO SCH (12:01)
[2020-09-10] MEDS: ENOXAPARIN 40 MG/0.4 ML SYRINGE SQ SCH (12:01)
[2020-09-10] MEDS: ISOSORBIDE MONONITRATE ER 60 MG TAB.ER.24H PO SCH (12:01)
[2020-09-10] MEDS: OXYBUTYNIN XL 5 MG TAB.ER.24 PO SCH (12:01)
[2020-09-10] MEDS: KETOROLAC 0.5% OPHTH DROPS 5 ML BTL LEFT EYE SCH ×4 (12:01→20:06)
[2020-09-10] MEDS: BENZOCAINE/MENTHOL LOZENG 1 EACH LOZENGE MUCOUS MEM PRN (12:13)
[2020-09-10] MEDS: MORPHINE SULFATE 4 MG/ML SYRINGE IV PRN (13:20)
--- NOTE | 2020-09-10 15:17 | P.PN ---
Progress Note - Text Progress Note Date: 09/10/20 Chief Complaint: Abdominal pain History of presenting complaint: This is a pleasant 75-year-old patient of Dr. Amezquita. Chronic stable medical conditions include GERD, hypertension, hyperlipidemia, permanent pacemaker for sick sinus syndrome, hiatal hernia, nonobstructive coronary artery disease, osteomyelitis, BPH, basal cell carcinoma, kidney stones recovering. Patient 3 days ago started off with increasing abdominal pain. More central. Followed by nausea vomiting. No fever no chills. Normally has a bowel movement every day. Patient finally presented to [facility]. Computed tomography scan showed small bowel obstruction with a transition point. Patient was sent down here for further surgical evaluation. NG tube was placed. Today: Feeling better at this afternoon. Had a small bowel movement. Passed flatus. Less abdominal distention. Had a small bowel barium for follow-through today. 85 mL output in the last shift through NG tube. Review of systems: Was done for constitutional, cardiovascular, GI, pulmonary. relevant finding as above Active Medications Amlodipine Besylate (Amlodipine 10 Mg Tab) 10 mg PO QAM [facility] Last Admin: 09/10/20 12:01 Dose: 10 mg Documented by: Atenolol (Atenolol 25 Mg Tab) 25 mg PO BID [facility] Last Admin: 09/10/20 12:01 Dose: 25 mg Documented by: Benzocaine/Menthol (Benzocaine/Menthol Lozeng 1 Each Lozenge) 1 each MUCOUS MEM Q4HR PRN PRN Reason: Throat irratation Last Admin: 09/10/20 12:13 Dose: 1 each Documented by: Ezetimibe (Ezetimibe 10 Mg Tab) 10 mg PO DAILY [facility] Last Admin: 09/10/20 12:01 Dose: 10 mg Documented by: Enoxaparin Sodium (Enoxaparin 40 Mg/0.4 Ml Syringe) 40 mg SQ DAILY [facility] Last Admin: 09/10/20 12:01 Dose: 40 mg Documented by: Famotidine (Famotidine 20 Mg Tab) 20 mg PO Q12HR [facility] Last Admin: 09/10/20 12:01 Dose: 20 mg Documented by: Lactated Ringer's (Lactated Ringers) 1,000 mls @ 125 mls/hr IV .Q8H [facility] Last Admin: 09/10/20 12:02 Dose: 125 mls/hr Documented by: Isosorbide Mononitrate (Isosorbide Mononitrate Er 60 Mg Tab.Er.24h) 60 mg PO DAILY [facility] Last Admin: 09/10/20 12:01 Dose: 60 mg Documented by: Ketorolac Tromethamine (Ketorolac 0.5% Ophth Drops 5 Ml Btl) 1 drops LEFT EYE QID [facility] Last Admin: 09/10/20 12:04 Dose: 1 drops Documented by: Losartan Potassium (Losartan 50 Mg Tab) 50 mg PO QAM [facility] Last Admin: 09/10/20 12:01 Dose: 50 mg Documented by: Morphine Sulfate (Morphine Sulfate 4 Mg/Ml Syringe) 4 mg IV Q4HR PRN PRN Reason: Severe Pain Last Admin: 09/10/20 13:20 Dose: 4 mg Documented by: Naloxone HCl (Naloxone 0.4 Mg/Ml 1 Ml Vial) 0.2 mg IV Q2M PRN PRN Reason: Opioid Reversal Ondansetron HCl (Ondansetron 4 Mg/2 Ml Vial) 4 mg IVP Q8HR PRN PRN Reason: Nausea And Vomiting Last Admin: 09/07/20 15:18 Dose: 4 mg Documented by: Oxybutynin Chloride (Oxybutynin Xl 5 Mg Tab.Er.24) 10 mg PO DAILY [facility] Last Admin: 09/10/20 12:01 Dose: 10 mg Documented by: Pravastatin Sodium (Pravastatin Sodium 40 Mg Tab) 40 mg PO HS [facility] Last Admin: 09/09/20 20:01 Dose: 40 mg Documented by: Past medical history to include: GERD, hypertension, hyperlipidemia, permanent pacemaker for sick sinus syndrome, hiatal hernia, nonobstructive coronary artery disease, osteoarthritis, BPH, kidney stones, basal cell carcinoma 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 Conjunctiva normal. HEENT: External appearance of nose and ears normal, oral cavity-dry mucous membrane, NG tube to suction. NECK: JVD not raised; masses not palpable. HEART: First and second heart sounds are normal; no edema. LUNGS: Respiratory rate normal; clear to auscultation. ABDOMEN: Soft, no distention, no tenderness, bowel sounds present, liver spleen not palpable, no masses palpable. PSYCH: Alert and oriented x3; mood and affect normal. MUSCULAR skeletal: Evidence of some OA in the hands INVESTIGATIONS, reviewed in the clinical context: September 10: Potassium 4 creatinine 0.84 Small bowel follow-through: Passage of barium into the large bowel September 09: WBC 4.2 hemoglobin 14 platelets 106 potassium 4 creatinine 0.8 Abdominal x-ray film personally reviewed by me: Shows air-fluid levels September 08: Abdominal x-ray film personally reviewed by me shows: Persistent small bowel obstruction with air-fluid levels September 08: WBC 3.7 hemoglobin 14.3 potassium 3.9 creatinine 0.9 Sodium 138 potassium 3.8 bicarb 21 BUN 27 creatinine 0.9 Labs from [facility]: Amylase 67 lipase 50 white count 6.28 hemoglobin 16.1 platelets 144 potassium 3.9 lactic acid 1.2 troponin less than 0.01 AST, ALT both normal Computed tomography scan of the abdomen showing small bowel obstruction with a transition point Assessment and plan: -Acute small bowel obstruction, likely from fibrotic bands from prior abdominal surgery.-Clinically and radiologically improvement Continue NG tube to suction. Follow with Dr. Mohamud -Clinical dehydration with elevated BUN-better IV fluids -GERD H2 geno -Hyperlipidemia Continues Zetia -Essential hypertension Continue Norvasc and Tenormin -Chronic stable angina Continue with Imdur, atenolol -Permanent pacemaker for sick sinus syndrome -Nephrolithiasis currently is a dramatic -BPH Continue Detrol LA -Hiatal hernia Pepcid Clinically and radiologically doing better. Hopefully can be started on ice chips following clamping. Follow with surgery. Discussed with patient. Questions answered.
--- NOTE | 2020-09-10 15:23 | P.PN ---
Subjective Progress Note Date: 09/10/20 Principal diagnosis: Small bowel obstruction Patient doing well today. No further nausea or vomiting. No pain. Today's small bowel series shows no evidence of bowel obstruction at this time. Objective - Vital Signs Vital signs: Vital Signs Temp 97.9 F 09/10/20 13:40 Pulse 61 09/10/20 13:40 Resp 18 09/10/20 13:40 BP 125/83 09/10/20 13:40 Pulse Ox 94 L 09/10/20 13:40 Intake & Output 09/09/20 09/10/20 09/10/20 18:59 06:59 18:59 Intake Total 700 Output Total 310 Balance 390 Intake: Intake, IV Titration 700 Amount Lactated Ringers 1,000 ml 700 @ 125 mls/hr IV .Q8H [facility] Rx#:[id number] Output: Gastric Drainage 85 Urine 225 Other: Voiding Method Urinal Urinal # Voids 2 2 - Exam Abdomen: Soft, nontender, nondistended - Labs CBC & Chem 7: 09/09/20 07:28 09/10/20 05:57 Labs: Abnormal Lab Results - Last 24 Hours (Table) 09/10/20 Range/Units 05:57 Sodium 136 L (137-145) mmol/L Carbon Dioxide 20 L (22-30) mmol/L Glucose 68 L (74-99) mg/dL Calcium 8.1 L (8.4-10.2) mg/dL Assessment and Plan (1) Small bowel obstruction Narrative/Plan: Patient small bowel series reviewed. No evidence of small bowel obstruction currently. We'll remove nasogastric tube again liquid diet. May advance as tolerates. Anticipate discharge tomorrow. Current Visit: Yes Status: Acute Code(s): K56.609 - UNSP INTESTNL OBST, UNSP TO PARTIAL VERSUS COMPLETE OBST SNOMED Code(s): 930577666
[2020-09-10] MEDS: PRAVASTATIN SODIUM 40 MG TAB PO SCH (20:05)
[2020-09-11] MEDS: LACTATED RINGERS 1,000 ML IV SCH (00:40)
[2020-09-11] MEDS: OXYBUTYNIN XL 5 MG TAB.ER.24 PO SCH (07:17)
[2020-09-11] MEDS: ENOXAPARIN 40 MG/0.4 ML SYRINGE SQ SCH (07:17)
[2020-09-11] MEDS: ISOSORBIDE MONONITRATE ER 60 MG TAB.ER.24H PO SCH (07:18)
[2020-09-11] MEDS: FAMOTIDINE 20 MG TAB PO SCH (07:18)
[2020-09-11] MEDS: amLODIPine 10 MG TAB PO SCH (07:18)
[2020-09-11] MEDS: atenoloL 25 MG TAB PO SCH (07:18)
[2020-09-11] MEDS: KETOROLAC 0.5% OPHTH DROPS 5 ML BTL LEFT EYE SCH (07:18)
[2020-09-11] MEDS: EZETIMIBE 10 MG TAB PO SCH (07:18)
[2020-09-11] MEDS: LOSARTAN 50 MG TAB PO SCH (07:18)
[2020-09-11 07:48] VITALS: BP 145/83; PULSE 61; RESP 17; TEMP 98.7
--- NOTE | 2020-09-11 13:53 | P.PN ---
Subjective Progress Note Date: 09/11/20 CHIEF COMPLAINT: Small bowel obstruction HISTORY OF PRESENT ILLNESS: Surgical service is following in regards to patient's small bowel obstruction. He is tolerating diet. He denies any nausea or vomiting. He denies any abdominal pain. He is having bowel movements and flatus. Afebrile. PHYSICAL EXAM: VITAL SIGNS: Reviewed. GENERAL: Well-developed in no acute distress. HEENT: No sclera icterus. Extraocular movements grossly intact. Moist buccal mucosa. Head is atraumatic, normocephalic. ABDOMEN: Soft. Nondistended. Nontender. NEUROLOGIC: Alert and oriented. Cranial nerves II through XII grossly intact. ASSESSMENT: 1. Small bowel obstruction resolved with conservative treatment PLAN: -Patient is stable for discharge from surgical standpoint -Continue a dysphagia soft diet for the next couple a days and advance as tolerated Physician Bosom Presser note has been reviewed by physician. Signing provider agrees with the documented findings, assessment, and plan of care. Objective - Vital Signs Vital signs: Vital Signs Temp 98.7 F 09/11/20 07:48 Pulse 61 09/11/20 08:00 Resp 17 09/11/20 08:00 BP 145/83 09/11/20 07:48 Pulse Ox 95 09/11/20 07:48 Intake & Output 09/10/20 09/11/20 09/11/20 18:59 06:59 18:59 Other: Voiding Method Urinal Urinal Urinal # Voids 2 - Labs CBC & Chem 7: 09/09/20 07:28 09/10/20 05:57
[2020-09-11 14:10] VITALS: BMI 26.6
--- NOTE | 2020-09-11 21:43 | P.DS ---
Providers Date of admission: 09/07/20 06:23 Expected date of discharge: 09/11/20 Attending physician: Kody Mondragon Consults: 09/07/20 06:24 Consult Physician Routine Consulting Provider: Jae Sims Reason/Comments: sbo Do you want consulting provider notified?: Yes Primary care physician: [facility] Course: Chief Complaint: Abdominal pain History of presenting complaint: This is a pleasant 75-year-old patient of Dr. Amezquita. Chronic stable medical conditions include GERD, hypertension, hyperlipidemia, permanent pacemaker for s ick sinus syndrome, hiatal hernia, nonobstructive coronary artery disease, osteomyelitis, BPH, basal cell carcinoma, kidney stones recovering. Patient 3 days ago started off with increasing abdominal pain. More central. Followed by nausea vomiting. No fever no chills. Normally has a bowel movement every day. Patient finally presented to [facility]. Computed tomography scan showed small bowel obstruction with a transition point. Patient was sent down here for further surgical evaluation. NG tube was placed. Slowly improved. Small bowel follow through did show barium passing to the large bowel. NG tube was discontinued. Diet was gradually advanced. Today: Tolerating diet. Had a bowel movement. No abdominal pain. Up and about. Cleared by surgery. Diet was advanced this morning. Discussed with the nurse and the patient. Discussion and discharge planning more than 35 minutes Consultation: Dr. Mohamud from general surgery Past medical history to include: GERD, hypertension, hyperlipidemia, permanent pacemaker for sick sinus syndrome, hiatal hernia, nonobstructive coronary artery disease, osteoarthritis, BPH, kidney stones, basal cell carcinoma 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 Alcohol rarely Physical examination: VITAL SIGNS: 98.7, 61, 17, 145/83, 95% room air GENERAL: Sitting up in a chair, comfortable EYES: Pupils equal. Conjunctiva normal. NECK: JVD not raised; masses not palpable. HEART: First and second heart sounds are normal; no edema. LUNGS: Respiratory rate normal; clear to auscultation. ABDOMEN: Soft, no distention, no tenderness, bowel sounds present, liver spleen not palpable, no masses palpable. PSYCH: Alert and oriented x3; mood and affect normal. MUSCULAR skeletal: Evidence of some OA in the hands INVESTIGATIONS, reviewed in the clinical context: September 10: Potassium 4 creatinine 0.84 Small bowel follow-through: Passage of barium into the large bowel September 09: WBC 4.2 hemoglobin 14 platelets 106 potassium 4 creatinine 0.8 Abdominal x-ray film personally reviewed by me: Shows air-fluid levels September 08: Abdominal x-ray film personally reviewed by me shows: Persistent small bowel obstruction with air-fluid levels September 08: WBC 3.7 hemoglobin 14.3 potassium 3.9 creatinine 0.9 Sodium 138 potassium 3.8 bicarb 21 BUN 27 creatinine 0.9 Labs from [facility]: Amylase 67 lipase 50 white count 6.28 hemoglobin 16.1 platelets 144 potassium 3.9 lactic acid 1.2 troponin less than 0.01 AST, ALT both normal Computed tomography scan of the abdomen showing small bowel obstruction with a transition point Assessment and plan: -Acute small bowel obstruction, likely from fibrotic bands from prior abdominal surgery.-Improved Continue NG tube to suction. -Discontinued. Followed by Dr. Mohamud from general surgery -Clinical dehydration with elevated BUN-better IV fluids -GERD H2 geno -Hyperlipidemia Continues Zetia -Essential hypertension Continue Norvasc and Tenormin -Chronic stable angina Continue with Imdur, atenolol -Permanent pacemaker for sick sinus syndrome -Nephrolithiasis currently is a dramatic -BPH Continue Detrol LA -Hiatal hernia Pepcid Disposition: Home Patient Condition at Discharge: Fair Plan - Discharge Summary Discharge Rx Participant: No New Discharge Prescriptions: Continue amLODIPine [Norvasc] 10 mg PO QAM Pravastatin Sodium [Pravachol] 40 mg PO HS Irbesartan [Avapro] 150 mg PO QAM atenoloL [Tenormin] 25 mg PO BID Isosorbide Mononitrate ER [Imdur] 60 mg PO DAILY Tolterodine ER [Detrol LA] 4 mg PO DAILY Ketorolac 0.5% Ophth Soln [Acular 0.5%] 1 drop LEFT EYE QID Ezetimibe [Zetia] 10 mg PO DAILY Azelastine HCl [Astepro] 2 spray EA NOSTRIL BID Discharge Medication List Irbesartan [Avapro] 150 mg PO QAM 10/18/19 [History] Pravastatin Sodium [Pravachol] 40 mg PO HS 10/18/19 [History] amLODIPine [Norvasc] 10 mg PO QAM 10/18/19 [History] atenoloL [Tenormin] 25 mg PO BID 10/18/19 [History] Azelastine HCl [Astepro] 2 spray EA NOSTRIL BID 09/07/20 [History] Ezetimibe [Zetia] 10 mg PO DAILY 09/07/20 [History] Isosorbide Mononitrate ER [Imdur] 60 mg PO DAILY 09/07/20 [History] Ketorolac 0.5% Ophth Soln [Acular 0.5%] 1 drop LEFT EYE QID 09/07/20 [History] Tolterodine ER [Detrol LA] 4 mg PO DAILY 09/07/20 [History] Follow up Appointment(s)/Referral(s): Jae Sims MD [Medical Doctor] - 3 Weeks Sourav Amezquita MD [Primary Care Provider] - 09/13/20 8:30 am Activity/Diet/Wound Care/Special Instructions: dc when ok with surgery Continue a dysphagia chopped to soft diet for the next couple a days and then advance as tolerated. Discharge Disposition: HOME SELF-CARE
== END 2020-09-11 14:20 | disposition home or self-care (01) | DRG 390 ==
LOC: EC 06:20 → 4SSUR 06:23
PROVIDERS: ADMIT Hospitalist; ATTEND Hospitalist
PROC: 0D9770Z Drainage of Stomach, Pylorus with Drainage Device, Via Natural or Artificial Opening (ICD-10-PCS; principal; 2020-09-07)
DX: K56.50 Intestinal adhesions [bands], unspecified as to partial versus complete obstruction (principal); K21.9 Gastro-esophageal reflux disease without esophagitis; E86.0 Dehydration; K44.9 Diaphragmatic hernia without obstruction or gangrene; I25.118 Atherosclerotic heart disease of native coronary artery with other forms of angina pectoris; I10 Essential (primary) hypertension; Z20.822 Contact with and (suspected) exposure to COVID-19; E78.5 Hyperlipidemia, unspecified; M19.09 Primary osteoarthritis, other specified site; N20.0 Calculus of kidney; N40.0 Benign prostatic hyperplasia without lower urinary tract symptoms; R19.7 Diarrhea, unspecified; R94.4 Abnormal results of kidney function studies; Z79.899 Other long term (current) drug therapy; Z87.19 Personal history of other diseases of the digestive system; Z85.828 Personal history of other malignant neoplasm of skin; Z87.39 Personal history of other diseases of the musculoskeletal system and connective tissue; Z86.79 Personal history of other diseases of the circulatory system; Z95.0 Presence of cardiac pacemaker
CPT/HCPCS: 74019; 74250; 80048; 83735; 84100; 85025; 93005; 99284

== ENCOUNTER → 2020-10-11 | Outpatient (CLI) | payer MEDICARE ==
[2020-10-11 15:58] LABS: African American GFR (CKD) >90 (>60 ml/min/1.73 sqM); Blood Urea Nitrogen 15 mg/dL (9-20); Non-African American GFR(CKD) 78 (>60 ml/min/1.73 sqM)
--- NOTE | 2020-10-11 18:29 | CT ---
EXAMINATION TYPE: CT abdomen pelvis w con DATE OF EXAM: 10/11/2020 COMPARISON: 09/07/2020 HISTORY: Abdominal pain, bowel obstruction CT DLP: 1094.50 mGycm Automated exposure control for dose reduction was used. CONTRAST: CT scan of the abdomen pelvis is performed with IV Contrast, patient injected with 100 mL of Isovue 3 00. FINDINGS- LUNG BASES-subsegmental linear changes most typical of atelectasis. Cardiac device noted.. LIVER/GB-tiny hypodensity within the dome of the liver too small to characterize.. PANCREAS- No gross abnormality is seen. SPLEEN- No gross abnormality is seen. ADRENALS- No gross abnormality is seen. KIDNEYS/BLADDER-multiple bilateral renal cysts and parapelvic renal cysts are seen. No hydronephrosis . Prostate appears prominent with calcification correlate with PSA.. BOWEL-bowel gas pattern nonspecific with no obstruction. There is findings suggestive of previous livan endectomy. LYMPH NODES-soft tissue nodules are seen within the mesentery of the abdomen greatest on the right. L argest measures 1.8 cm in short axis compatible with pathologic lymphadenopathy.. OSSEOUS STRUCTURES-hypertrophic and degenerative changes of the spine. Multilevel canal stenosis susp ected with severe changes L4-L5. Grade 1 anterolisthesis with multilevel facet arthropathy.. OTHER- atherosclerotic change aorta with no evidence of aneurysm. Suspected bladder diverticulum on the right posteriorly IMPRESSION- 1. Pathologic mesenteric lymphadenopathy involving the right abdomen best noted on axial image 49. Re commend PET scan. Correlate with endoscopic evaluation of the gastrointestinal tract as clinically wa rranted. 2. Nonspecific abdomen with no obstruction. 3. Bilateral simple renal cysts. Enlarged prostate correlate with PSA. 4. Multilevel severe degenerative disc disease with multilevel canal stenosis. Severe changes L4-L5.
== END | disposition home or self-care (01) ==
LOC: RADCTMAIN 15:08
PROVIDERS: ATTEND Surgery
DX: M48.061 Spinal stenosis, lumbar region without neurogenic claudication (principal); M51.36 Other intervertebral disc degeneration, lumbar region; R59.0 Localized enlarged lymph nodes; N28.1 Cyst of kidney, acquired; N40.0 Benign prostatic hyperplasia without lower urinary tract symptoms; K56.609 Unspecified intestinal obstruction, unspecified as to partial versus complete obstruction
CPT/HCPCS: 82565; 84520; 74177; 36415; Q9967; 97597; 99202

== ENCOUNTER 2020-11-13 10:45 | Day surgery (SDC) | payer MEDICARE ==
[2020-11-09 16:22] VITALS: BMI 26.6
[~2020-11-13 10:45] MED LIST changes: -DEXAMETHASONE SOD PHOSPHATE 10 MG/ML 1 ML VIAL IV ONE; -LIDOCAINE 1% (10MG/ML) FOR IV START SQ ONE; -ONDANSETRON 4 MG/2 ML VIAL ONE; -fentaNYL (PF) 50 MCG/ML 2 ML AMP IV PRN
[2020-11-13 11:14] VITALS: RESP 16; TEMP 97.8
[2020-11-13] MEDS ORDERED: LIDOCAINE 1% (10MG/ML) FOR IV START INTRADERMA ONE (11:18)
[2020-11-13] MEDS ORDERED: PROPOFOL 10 MG/ML 20 ML VIAL IV ONE (11:53)
[2020-11-13] MEDS ORDERED: LIDOCAINE 1% INJ 10MG/ML (20 ML MDV) ONE (11:53)
--- NOTE | 2020-11-13 12:04 | P.HPADDEND ---
H&P Addendum H&P Addendum Date: 11/13/20 Patient here today for upper and lower endoscopy. Patient had a CAT scan performed again showing a possible calcified lymph node in the right lower quadrant. Patient's last colonoscopy 4 years ago. He was seen by oncology. Upper and lower endoscopy advised. He is still having intermittent nausea and bloating. Mild abdominal discomfort at times. Proceed with EGD and colonoscopy at this time.
--- NOTE | 2020-11-13 12:26 | P.PCN ---
Date of Procedure: 11/13/20 Procedure(s) Performed: PREOPERATIVE DIAGNOSIS: GERD, abdominal pain, change in bowel habits POSTOPERATIVE DIAGNOSIS: Gastritis, hiatal hernia, cecal polyp PROCEDURE: 1. EGD with biopsy 2. Colonoscopy with snare polypectomy ANESTHESIA: MAC SURGEON: aJe Sims M.D. SPECIMENS: Antrum, cecal polyp ENDOSCOPIC PROCEDURE: The patient was on the endoscopy table in the left decubitus position. The Olympus gastroscope was inserted into the oropharynx and passed under direct visualization to the region of the third portion of the duodenum. From that point the scope was slowly withdrawn inspecting all surfaces carefully. There were no neoplastic inflammatory or polypoid lesions throughout the duodenum. The pylorus was widely patent. The stomach was carefully inspected. There was mild gastritis present. A biopsy of the antrum took place to rule out H. pylori. Retroflexion revealed a small sliding hiatal hernia. The esophagus was then carefully examined. There were no neoplastic inflammatory or polypoid lesions throughout the visualized esophagus. The patient was kept on the endoscopy table in the left decubitus position. The Olympus colonoscope was inserted into the anus and passed under direct visualization to the base of the cecum. The appendiceal orifice was visualized. From that point the scope was slowly withdrawn inspecting all surfaces carefully. There was a small polyp at the base the cecum that was removed using the snare with cautery technique. The remainder of the cecum, ascending, transverse, descending, sigmoid and rectum appeared normal. There was no visible diverticulosis noted. Digital rectal examination was normal. The patient was taken to the recovery room in stable condition per anesthesia guidelines. RECOMMENDATIONS: Await biopsy results. Will discuss further workup with oncology.
[2020-11-13 12:49] VITALS: BP 135/91; PULSE 60
== END 2020-11-13 13:12 | disposition home or self-care (01) ==
LOC: ORWHC2ENDO 10:45
PROVIDERS: ATTEND Surgery
DX: K29.70 Gastritis, unspecified, without bleeding (principal); D12.0 Benign neoplasm of cecum; K44.9 Diaphragmatic hernia without obstruction or gangrene; K21.9 Gastro-esophageal reflux disease without esophagitis; I10 Essential (primary) hypertension; E78.5 Hyperlipidemia, unspecified; M19.90 Unspecified osteoarthritis, unspecified site; Z95.0 Presence of cardiac pacemaker
CPT/HCPCS: 45385; 43239; 88305; J2001; J2704

== ENCOUNTER → 2020-11-15 | Outpatient (CLI) | payer MEDICARE ==
[2020-11-15 09:01] LABS: African American GFR (CKD) >90 (>60 ml/min/1.73 sqM); Blood Urea Nitrogen 17 mg/dL (9-20); Non-African American GFR(CKD) 85 (>60 ml/min/1.73 sqM)
--- NOTE | 2020-11-15 10:07 | CT ---
EXAMINATION TYPE: CT chest w con DATE OF EXAM: 11/15/2020 COMPARISON: None HISTORY: abnormal prior CT CT DLP: 591 mGycm Automated exposure control for dose reduction was used. CONTRAST: CT scan of the chest is performed with IV Contrast, patient injected with 100 mL of Isovue 300. FINDINGS: LUNGS: The lungs are grossly clear, there is no concerning parenchymal mass or nodule identified. T here is no pleural effusion or pneumothorax seen. The tracheobronchial tree is patent. MEDIASTINUM: There are no greater than 1 cm hilar or mediastinal lymph nodes. No pericardial effusi on is seen. Thoracic aorta is of normal caliber. The heart is not enlarged. UPPER ABDOMEN: Renal cystic changes noted. OTHER: No additional significant abnormality is seen. IMPRESSION: No evidence for adenopathy. No significant abnormality seen.
== END | disposition home or self-care (01) ==
LOC: RADCTMAIN 08:10
PROVIDERS: ATTEND Internal Medicine Hematology & Oncology
DX: R59.1 Generalized enlarged lymph nodes (principal)
CPT/HCPCS: 82565; 84520; 71260; 36415; Q9967

== ENCOUNTER → 2021-02-19 | Outpatient (CLI) | payer MEDICARE ==
[2021-02-19 11:55] LABS: African American GFR (CKD) >90 (>60 ml/min/1.73 sqM); Blood Urea Nitrogen 24 mg/dL (9-20); Non-African American GFR(CKD) 78 (>60 ml/min/1.73 sqM)
--- NOTE | 2021-02-19 14:35 | CT ---
EXAMINATION TYPE: CT abdomen pelvis w con DATE OF EXAM: 02/19/2021 COMPARISON: CT abdomen and pelvis October 11, 2020 HISTORY: Lymphadenopathy per order. Follow-up for bowel obstruction per patient. CT DLP: 1058.5 mGycm, Automated Exposure Control for Dose Reduction was Utilized. CONTRAST: CT scan of the abdomen and pelvis is performed with oral and with IV Contrast, patient injected with 100 mL of Isovue 300. FINDINGS: LUNG BASES: Partial visualization of right-sided pacemaker leads redemonstrated. LIVER/GB: Stable subcentimeter hypodense lesion left hepatic lobe axial image 15 too small to further characterize presumed benign. PANCREAS: No significant abnormality is seen. SPLEEN: No significant abnormality is seen. ADRENALS: No significant abnormality is seen. KIDNEYS: A few small simple appearing thin-walled cyst upper pole level right kidney redemonstrated. There a larger central subligamentous thin-walled cysts in the right kidney redemonstrated including central thin-walled 4.8 cm cyst axial image 39. Symmetric cortical uptake and excretion without hydro nephrosis. Smaller simple appearing parapelvic cyst left kidney are redemonstrated. BOWEL: No significant abnormality is seen. PROSTATE/SEMINAL VESICLES: Mildly enlarged prostate consistent with BPH redemonstrated. Central calci fications redemonstrated. LYMPH NODES: Stable 1.7 x 1.5 cm right lower quadrant mesenteric nodule or lymph node axial image 53. Stable adjacent subcentimeter lymph node coronal image 37. No new greater than 1 cm adenopathy. OSSEOUS STRUCTURES: Grade 1 retrolisthesis L3 on L4 and to lesser degree L2 on L3. Moderate to severe disc space narrowing L2-L3 and L5-S1 levels. Multilevel facet arthropathy in the lower lumbar spine. Spurring left sacroiliac joint. [id number] axial joint space loss both hips. OTHER: Moderate calcified plaque of the aorta extends into branch vessels. IMPRESSION: Stable abnormal enlarged right lower quadrant 1.7 x 1.5 cm mesenteric lymph node. No new suspicious mass or adenopathy.
== END | disposition home or self-care (01) ==
LOC: RADCTMAIN 11:01
PROVIDERS: ATTEND Internal Medicine Hematology & Oncology
DX: R59.0 Localized enlarged lymph nodes (principal)
CPT/HCPCS: 82565; 84520; 74177; 36415; Q9967 ×2